=== PATIENT | female | born 1985 | race Caucasian/White ===

== ENCOUNTER → 2023-03-23 14:27 | Outpatient (CLI) | payer OTHER, SELFPAY ==
[2023-03-23 15:28] LABS: Alanine Aminotransferase 21 IU/L (<35); Albumin 3.3 g/dL (3.5-5.0); Albumin Globulin Ratio 1.1 (1.0-2.8); Alkaline Phosphatase 91 U/L (38-126); Aspartate Aminotransferase 20 IU/L (14-36); Bilirubin Total 0.2 mg/dL (0.2-1.3); Bilirubin Unconjugated 0.2 mg/dL (0.0-1.1); Globulin 3.1 g/dL (1.7-4.1); HEMOLYSIS < 15 (0-50); Total Protein 6.4 g/dL (6.3-8.2)
[2023-03-25 10:08] LABS: Bile Acids 7.1 umol/L (0.0-10.0)
== END ==
PROVIDERS: Referring Provider Nurse Practitioner Obstetrics & Gynecology; Visit Provider Nurse Practitioner Obstetrics & Gynecology
DX: Z34.90 Encounter for supervision of normal pregnancy, unspecified, unspecified trimester (principal); L29.9 Pruritus, unspecified
CPT/HCPCS: 36415; 80076; 82239

== ENCOUNTER 2023-04-06 02:08 | Outpatient (CLI) | payer OTHER, SELFPAY ==
--- NOTE | 2023-04-06 02:33 | PM.OBTRLD ---
Visit Information Visit Information Date of evaluation: 04/06/23 Primary OB Provider: Peggy Corona On-call OB Provider: Sherine Devine Reason for Evaluation: Yes non-stress test non-stress test reason: other (s/p fall from standing) Comments/Additional reasons for admission: 37YO @ 35wks 6 days by sure LMP 07/29/2022 and concordant w/ 8wk US, here for evaluation after a fall from standing at around 0100. Was arguing with her partner in her kitchen when she got so stressed out and things went black. Came to a few seconds later on her right side in the floor. Thinks she crumpled more than fell. Denies impact to her head or abdomen. No pain, cramping or vaginal bleeding. Has not felt FM since the fall. Denies DV or concern for physical safety at home. Vital Signs Vital Signs: BP 118/87, HR 81bpm, T 36.3 C Temporal, SpO2 99% on RA PFSH Social History (Updated 04/07/23 @ 10:56 by Sherine Devine CNM) marital status: household members: spouse lives independently: Yes housing: house education level: college occupational status: employed Review of Systems Review of Systems ROS: Yes All systems reviewed with the patient and are negative except as otherwise documented Exam Vital Signs (past 8 hours): see above Presentation: vertex Skin General: no rashes or lesions noted Trauma: no lacerations or abrasions Wounds: no wounds Psych Appearance: grossly normal Mental Status: mental status grossly normal Speech and Movement: speech and movement normal Mood: anxious mood Evaluation Evaluation Baseline heart rate: 135 Variability: Moderate (11-25) monitor accelerations: Present Monitor Decelerations: Absent Category of Tracing: Reactive Comments: CE Deferred Diagnosis, Plan/Disposition Final Diagnosis (1) Syncope: Status: Acute (2) Fall from standing: Status: Acute Plan/Disposition Plan: Reassurance of well being given. Home visit planned later today. Emotional support given and encouraged her to go home and rest. OB Disposition: home
== END 2023-04-06 02:41 | disposition home or self-care (01) ==
LOC: LABOR 02:11 → OB 04-10 15:04
PROVIDERS: Referring Provider Nurse Practitioner Obstetrics & Gynecology; Visit Provider Nurse Practitioner Obstetrics & Gynecology
DX: O26.893 Other specified pregnancy related conditions, third trimester (principal); R55 Syncope and collapse; Z3A.35 35 weeks gestation of pregnancy
CPT/HCPCS: 59025; 87081; G0378; G0379

== ENCOUNTER → 2023-04-06 | Outpatient (ROUT) | payer OTHER, SELFPAY | PROVIDERS: Visit Provider Advanced Practice Midwife ==

== ENCOUNTER → 2023-04-09 10:00 | Outpatient (CLI) | payer OTHER, SELFPAY ==
[2023-04-09 11:47] LABS: Alanine Aminotransferase 24 IU/L (<35); Albumin 3.3 g/dL (3.5-5.0); Alkaline Phosphatase 91 U/L (38-126); Aspartate Aminotransferase 21 IU/L (14-36); Bilirubin Total 0.1 mg/dL (0.2-1.3); Bilirubin Unconjugated 0.1 mg/dL (0.0-1.1); Globulin 3.3 g/dL (1.7-4.1); HEMOLYSIS < 15 (0-50); Total Protein 6.6 g/dL (6.3-8.2)
[2023-04-12 10:08] LABS: Bile Acids 4.1 umol/L (0.0-10.0)
== END ==
PROVIDERS: Referring Provider Advanced Practice Midwife; Visit Provider Advanced Practice Midwife
DX: O26.643 Intrahepatic cholestasis of pregnancy, third trimester (principal); O09.519 Supervision of elderly primigravida, unspecified trimester
CPT/HCPCS: 36415; 80076; 82239

== ENCOUNTER 2023-05-15 11:08 | Inpatient (IN) | payer OTHER, SELFPAY ==
[2023-05-15] VITALS (7 sets, daily range): BP systolic 109–134; BP diastolic 71–87; PULSE 93–105; RESP 12–20; TEMP 36.3–37; O2SAT 94–95
--- NOTE | 2023-05-15 | PATH_ITS ---
[facility] Accession Number: [id number] No. of containers..01 Tissue . 01 Material submitted: . placenta - PLACENTA . 01 Diagnosis: John Placenta, 41+3 Weeks, 562 grams: 1. Acute chorioamnionitis. 2. Villous infarct, subacute, 0.5 cm. 3. Intervillous thrombus, 1.2 cm (as measured on slide). 4. Rare meconium-laden macrophages identified. 5. Three vessel cord without funisitis. 6. Overall villous maturation appropriate for gestational age. [facility] 05/26/2023 1723 Local . 01 Electronically signed: . Geri Sen MD, Pathologist NPI- [id number] . 01 Gross description: . The specimen is received fresh and subsequently placed in formalin per client, labeled with the patient's name, , and placenta, consists of a discoid john placenta with a trimmed weight of 562 grams and measuring 17.2 x 16.6 x 2.3 cm with no accessory lobes identified. . The membranes are detached, diffusely delacruz and roughened, with discoloration occupying approximately 90% of the membrane surface. The membranes insert and are diffusely ruptured at the margin. . The cord measures 42.4 cm in length by 0.9 cm in average diameter with a leftward coil and an index of approximately 1 twist per 5 cm. The cord inserts eccentrically 4.6 cm from the nearest placental disc edge, and sectioning reveals unremarkable trivascular architecture with no knots or lesions identified. . The surface is blue-rangel with the amnion diffusely from the chorion. A slight green tint is identified with no discoloration or lesions. . The maternal surface is apparently complete with some adherent hemorrhagic material occupying approximately diffusely 20% of the maternal surface with no grossly identified associated indentation. No discoloration or lesions are identified. Sectioning reveals a delacruz area of discoloration located eccentrically and occupying less than 10% of the cut surface. No additional lesions are identified. . Banquet Houseperson sections are submitted as follows: A1: Membrane roll and placental end of cord. A2: Membrane roll and end of cord. A3-A4: Full thickness maternal surface adherent hemorrhage. A5-A6: Full thickness cut surface discoloration. A7-A9: Central full thickness unremarkable sections. ([id number]) /MRV 05/18/2023 1229 Local . 01 Microscopic: . PAS stains were performed on blocks A1, A4 and A6, in order to evaluate for fungal organisms, and are all negative. A control stain showed appropriate reactivity. . 01 Pathologist provided ICD-10: O41.1230 . 01 CPT . 716155, [id number] Specimen Comment: A courtesy copy of this report has been sent to [facility]ology Performed at: 01 [facility] [address] [place] [address] [address] [facility], [place], [place] [id number] MD Piotr Ramos MD Phone: [phone]
--- NOTE | 2023-05-15 11:40 | PM.OBHP.1 ---
OB HPI Date/Time Date of admission: 05/15/23 Date Patient Seen: 05/15/23 Time Patient Seen: 11:30 History of Present Condition Chief complaint: induction : 1 Para: 0 Estimated Date of Delivery: 05/05/23 Estimated Gestational Age (weeks): 41.3 Narrative: Michelle Medrano is a 37 year old female @ 41wks 3 days by LMP concordant with 8wk US who presents to the hospital for evaluation of PROM with tachycardia. PROM occurred at 0900 yesterday morning, 05/14/2023, for small amounts of clear fluid. She was evaluated in clinic with a reactive NST at that time and counseled on her options for active vs expectant management of PROM. Patient was planning a home with CONNOR Corona and elected expectant management. Arrived at clinic at 0930 this morning with occasional, mild cramping, continued leaking of clear fluid and afebrile temperatures overnight. FHR was auscultated at 170's in clinic and patient was encouraged to transfer into the hospital for evaluation. Uncomplicated care with Jeremy. Desires low intervention . 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 Partner is present and supportive. Indications Indication for induction OB: other (PROM >24 hours) and post dates History of Present care: good care, initiated at week # (8) and number of visits (14) Dating criteria: LMP confirmed by 1st trimester US Ultrasounds: normal mid trimester US Obstetrical complications: none Medical complications: none Preadmission Labs Blood type: A (+) positive -: Antibody screen: negative, GBS status: negative, HBsAG: negative, HIV: negative and RPR/VDLR: negative -: Chlamydia screen: not detected and Gonorrhea screen: not detected -: Rubella: immune and Varicella: immune HCT: 36.3 HCAB: negative Cell-free DNA: Negative 1 hr GTT: 134 Evaluation Evaluation Baseline heart rate: 175 Variability: Minimal (3-5) monitor accelerations: Absent Monitor Decelerations: Absent Contraction Frequency (minutes): 2 Uterine Contraction Intensity: Mild Status: Category ll Dilation (cm): 1.5 Effacement (%): 75 Dilation: 1-2 cm Effacement: 60-70% station: -2 Position of cervix: posterior Consistency: soft Garcia score: 6 Comments: Gross ROM, clear PFSH Medical History (Updated 05/15/23 @ 12:06 by Sherine Devine CNM) Anxiety Depression affecting Social History (Updated 04/07/23 @ 10:56 by Sherine Devine CNM) marital status: household members: spouse lives independently: Yes housing: house education level: college occupational status: employed Meds Home Medications and Allergies Home Medications Medication Instructions Recorded Confirmed Type fluoxetine 20 mg capsule 20 mg PO DAILY 05/15/23 05/15/23 History omeprazole 20 mg tablet,delayed 20 mg PO DAILY 05/15/23 05/15/23 History release Allergies Allergy/AdvReac Type Severity Reaction Status Date / Time No Known Drug Allergies Allergy Verified 05/15/23 12:04 Review of Systems Review of Systems ROS: Yes All systems reviewed with the patient and are negative except as otherwise documented OB Exam Vital signs Blood Pressure: 134/87 Pulse Rate: 96 Temperature: 98.6 F Resp Effort & Inspection: normal respiratory effort and able to speak in complete sentences Auscultation: clear to auscultation bilaterally Cardio Rate: regular rate Rhythm: regular rhythm Presentation: vertex Estimated Weight (lbs): 9 Objective Labs 05/15/23 11:45 05/15/23 11:45 Assessment and Plan Assessment and Plan Assessment and Plan narrative: A: Late term [place] PROM x 26 hours with NO sx of infection Not in labor, remote from delivery No indication for GBS prophylaxis Cat II FHR for tachycardia P: Admit, routine orders with pre-eclampsia panel. Consulted , [facility] OBGyn who is on her way in to assess and discuss options with the patient. Patient ordered NPO at this time and counseled on high likelihood of for non-reasssuring FHR tracing remote from delivery.
[2023-05-15] MEDS: LACTATED RINGERS 1,000 ML 100 ML IV (11:46)
[2023-05-15 11:56] LABS: Add Manual Diff / Slide Review NO; Basophils Absolute Auto 100 /uL (0-100); Basophils Percent Auto 0.4 % (0-2); Eosinophils Absolute Auto 100 /uL (0-450); Eosinophils Percent Auto 0.5 % (2-4); Hematocrit 38.8 % (36-46); Hemoglobin 12.9 g/dL (12.0-16.0); Lymphocytes Absolute Auto 1600 /uL (1100-4500); Lymphocytes Percent Auto 9.4 % (25-40); Mean Corpuscular HGB Conc 33.3 % (30-36); Mean Corpuscular Hemoglobin 28.2 PG (26-34); Mean Corpuscular Volume 84.7 fL (80-100); Monocytes Absolute Auto 900 /uL (0-900); Monocytes Percent Auto 5.3 % (3-14); Neutrophils Absolute Auto 13900 /uL (1500-7000); Neutrophils Percent Auto 84.4 % (50-75); Platelet Count 252 X10^3/uL (150-400); Red Blood Cell Count 4.58 X10^6/uL (4.0-5.2); White Blood Cell Count 16.5 X10^3/uL (4.5-11.0)
[2023-05-15 12:08] LABS: Aspartate Aminotransferase 21 IU/L (14-36); BUN Creatinine Ratio 25.9 (6-22); Blood Urea Nitrogen 15 mg/dL (7-17); Estimated Glomerular Filt Rate > 60 mL/min (>60); Uric Acid 4.3 mg/dL (2.5-6.2)
[2023-05-15] MEDS: AZITHROMYCIN 500 MG in DEXTROSE 5% IN WATER 250 ML 250 MG IV (12:59)
--- NOTE | 2023-05-15 13:00 | PM.OBPNLAB ---
Date/Time Date Patient Seen: 05/15/23 Time Patient Seen: 13:00 Pelvic Exam Effacement (%): 75 station: -2 Contractions Contraction intensity: Mild Status status: Category ll Heart Rate Baseline: 165 Monitor Accelerations: Absent Monitor Decelerations: Absent Monitor Variability: Minimal Assessment and Plan Plan: Comments: 37yo G1 at 41+3wks admitted after PROM yesterday and non-reassuring heart rate tracing today. Originally planned for a home , seen this morning for an NST after 24hrs ruptured, noted to have minimal variability. I discussed with the patient that given the non-reassuring tracing at this time, remote from delivery, that I would recommend she consider proceeding with delivery. Discussed with her that the risk of induction with continued category II tracing will likely still end in delivery, and potentially cause a more emergent situation. Pt agrees with this, and desires to proceed with primary at this time. consent It was explained to the patient that a section is a surgery to deliver the baby through an incision in the abdominal wall and uterus.? All procedures can be associated with risk and unforeseen complications, which can be immediate or delayed.? Risks and complications of section include, but are not limited to:? infection of the uterus, pelvic organs, or skin; inadvertent injury to internal organs such as the bowel, bladder, or possibly even the baby; blood loss, transfusion, and/or life-threatening hemorrhage requiring hysterectomy; blood clots in the legs, pelvic organs, or lungs; adverse reaction to medications or anesthesia during surgery; development of placenta accreta spectrum in a subsequent ; and increased risk of section in a subsequent . -plan for 2g Ancef and 500mg Azithro for ppx -VTE risk low, PPH risk medium due to prolonged rupture -will proceed to OR for delivery once all teams ready
[2023-05-15] MEDS: CITRIC ACID/SODIUM CITRATE 15 ML SOLUTION 30 ML PO (13:05)
[2023-05-15] MEDS: CEFAZOLIN 2 GM/100 ML PREMIX 100 ML IV (13:32)
[2023-05-15] MEDS: ACETAMINOPHEN IV 1,000 MG/100 ML VIAL 400 MG IV (13:45)
--- NOTE | 2023-05-15 13:47 | SUR.OPER ---
Supine on Padded OR bed, head on pillow, safety belt at thigh, arms secured on padded arm boards at <90 degrees abduction. Bump under right buttock. Legs uncrossed with pillow under knees, gel pad to heels, tape over blanket to lower legs.
--- NOTE | 2023-05-15 13:58 | SUR.OPER ---
Viable baby girl born at 1351. Placenta delivered at 1353. Cord blood given to OB RN. Placenta sent to pathology according to MD order. APGARS: 8/9.
--- NOTE | 2023-05-15 14:11 | PM.AN.REGBLK ---
Regional Block Pre-procedure Procedure: Continuous Lumbar Epidural for L&D PMH/ROS narrative: 37yo female full-term with intolerance of labor for primary c/s. Anxiety/depression/PTSD. Otherwise healthy. See pre-anesthesia evaluation for further details. ASA Class: II (E) Labs: Hct 38.8 % (36-46) 05/15/23 11:45 Plt Count 252 X10^3/uL (150-400) 05/15/23 11:45 Medications: Current Medications Generic Name Dose Route Start Last Admin Trade Name Freq PRN Reason Stop Dose Admin Butorphanol Tartrate 0.5 mg 05/15/23 14:07 Butorphanol 1 Mg/Ml Vial IV 05/16/23 14:07 Q3H PRN Pain, Moderate (4-6) Butorphanol Tartrate 0.5 mg 05/15/23 14:07 Butorphanol 1 Mg/Ml Vial IV 05/16/23 14:08 Q3HR PRN PRURITUS Calcium Carbonate 1,000 mg 05/15/23 11:34 Calcium Carbonate 500 Mg Tab PO Q4HR PRN Dyspepsia Carboprost Tromethamine 250 mcg 05/15/23 11:34 Carboprost 250 Mcg/Ml Ampul IM Q90M PRN Bleeding Diphenhydramine HCl 25 mg 05/15/23 14:07 Diphenhydramine 50 Mg/Ml Vial IV 05/16/23 14:08 Q3HR PRN PRURITUS Fentanyl 100 mcg 05/15/23 11:34 Fentanyl 100 Mcg/2 Ml Inj IV Q1H PRN Pain, Severe (7-10) Hydromorphone HCl 0 mg 05/15/23 14:05 Hydromorphone 1 Mg Inj IV Q5MIN PRN Mod pain Oxytocin/Lactated Ringer's 30 unit in 500 mls @ 200 mls/hr 05/15/23 11:34 Oxytocin Premix IV CONT PRN Bleeding Protocol Tranexamic Acid 1,000 mg/ 100 mls @ 200 mls/hr 05/15/23 11:34 Sodium Chloride IV NOW PRN Bleeding Oxytocin/Lactated Ringer's 30 unit in 500 mls @ 2 mls/hr 05/15/23 11:45 Oxytocin Premix IV TITRATE PAT Protocol 2 MILLIUNIT/MIN Lactated Ringer's 1,000 mls @ 100 mls/hr 05/15/23 11:45 05/15/23 11:46 Lactated Ringers IV 100 mls/hr CONT PAT Administration Lactated Ringer's 1,000 mls @ 42 mls/hr 05/15/23 13:15 Lactated Ringers IV CONT PAT Acetaminophen 1,000 mg in 100 mls @ 400 mls/hr 05/15/23 14:03 05/15/23 14:08 Ofirmev IV 05/15/23 14:17 Infused NOW ONE Infusion Sodium Chloride 1,000 mls @ 100 mls/hr 05/15/23 14:15 Normal Saline 0.9% IV 05/16/23 14:07 CONT PAT Lidocaine HCl 20 ml 05/15/23 11:34 Lidocaine 1% 20 Ml INJ INTRA-OP PRN Post Delivery Meperidine HCl 25 mg 05/15/23 14:05 Meperidine 50 Mg/Ml Inj IV PACUNOW PRN Moderate pain or shivering Methylergonovine Maleate 0.2 mg 05/15/23 11:34 Methylergonovine 0.2 Mg Tablet PO Q6HR PRN Heavy Bleeding Methylergonovine Maleate 0.2 mg 05/15/23 11:34 Methylergonovine 0.2 Mg/Ml Vial IM NOW PRN Bleeding Metoclopramide HCl 10 mg 05/15/23 14:05 Metoclopramide 10 Mg/2 Ml Inj IV NOW PRN Nausea And Vomiting Metoclopramide HCl 10 mg 05/15/23 14:07 Metoclopramide 10 Mg/2 Ml Inj IV 05/16/23 14:07 Q4H PRN Nausea Misoprostol 800 mcg 05/15/23 11:34 Misoprostol 200 Mcg Tablet ID NOW PRN Bleeding Misoprostol 400 mcg 05/15/23 11:34 Misoprostol 200 Mcg Tablet SL NOW PRN Bleeding Nalbuphine HCl 5 mg 05/15/23 14:07 Nalbuphine 20 Mg/Ml Ampul IV Q6H PRN Pruritus Naloxone HCl 0.2 mg 05/15/23 11:34 Naloxone 0.4 Mg/Ml Vial IV Q2MIN PRN Opiate Reversal Naloxone HCl 0.4 mg 05/15/23 14:07 Naloxone 0.4 Mg/Ml Vial IV Q2MIN PRN Opiate Reversal Ondansetron HCl 4 mg 05/15/23 11:34 Ondansetron 4 Mg/2 Ml Inj IV Q4HR PRN Nausea And Vomiting Ondansetron HCl 4 mg 05/15/23 14:05 Ondansetron 4 Mg/2 Ml Inj IV NOW PRN Nausea And Vomiting Ondansetron HCl 4 mg 05/15/23 17:00 Ondansetron 4 Mg/2 Ml Inj IV 05/15/23 21:01 Q4HR PAT Oxycodone HCl 5 mg 05/15/23 14:05 Oxycodone Ir 5 Mg Tablet PO PACUNOW PRN Mild or moderate pain Oxycodone HCl 5 mg 05/15/23 14:07 Oxycodone Ir 5 Mg Tablet PO 05/16/23 14:07 Q4HR PRN Pain, Moderate (4-6) Oxytocin 10 unit 05/15/23 11:34 Oxytocin 10 Unit/Ml Vial IM NOW PRN Bleeding Allergies: Allergies Allergy/AdvReac Type Severity Reaction Status Date / Time No Known Drug Allergies Allergy Verified 05/15/23 12:04 Procedure Insertion date: 05/15/23 Insertion time: 13:28 Prep/Local: 1% lidocaine (Chlorhexidine) Interspace: L3-4 Patient position: sitting Sensory level: T6 bilaterally Initial Medications BOLUS DOSE time: 13:28 BOLUS DOSE (mL): 13 BOLUS DOSE med: other (0.75% bupivacaine in dextrose) Post-procedure Anesthesia time START: 13:14 Anesthesia time END: 14:40 Post-procedure Anesthesia Assessment: Yes CV function: HR/BP stable, Yes Resp function: RR/sat/airway adequate, Yes Post-op hydration adequate, Yes Pain control adequate, Yes Nausea & vomiting absent, Yes Temperature > 36 C and Yes Mental status appropriate
--- NOTE | 2023-05-15 14:32 | PM.PROC.1 ---
Procedures Date/Time Date of procedure: 05/15/23 Time of procedure: 13:51 General Procedure description: [place] Machine Operator Documentation I assisted the OB transportation equipment painter in the section for this patient. My responsibilities included retracting and suctioning, providing fundal pressure during delivery and following with suture during closure. Please see the OB's note for details of the surgery.
--- NOTE | 2023-05-15 14:47 | PM.OBCS.1 ---
Operative Date/Time/Diagnoses Date of procedure: 05/15/23 Time of procedure: 14:47 Pre-op diagnosis: 1. Term intrauterine john gestation at 41+3wks 2. Non-reassuring heart rate tracing 3. Prolonged rupture of membranes (>24hrs) 4. Advanced maternal age Post-op diagnosis: same (delivered via primary low transverse section) Procedure & Clinicians Procedure: Primary low transverse section Same procedure as scheduled: Yes Indications: 37yo at 41+3 weeks EGA w/ PNC c/b AMA, who was admitted on 05/15/23 for prolonged rupture of membranes. Her tracing was noted to have minimal variability with no accels or decels, and her cervical exam was 1cm. Given that she is remote from delivery, in addition to a non-reassuring heart rate tracing in the setting of prolonged rupture of membranes, she was counseled and consented for PLTCS. Surgeon: Kely Eason Click Yes if Unassisted: No Senior Accounts Payable Clerk: Sherine Devine Anesthesia Type: Spinal Operative Notes Findings: Normal-appearing uterus and bilateral fallopian tubes and ovaries. Meconium-stained fluid with foul odor noted with delivery. Delivery productive of a viable female in cephalic presentation with APGARs 8/9 and weighing 3478g. Specimen(s): cord blood and placenta Intraoperative meds administered: Duramorph and Ketorolac Applied: Catheter Estimated Blood Loss (mL): 900 Blood products transfused: none Procedure in detail: The risks, benefits, indications and alternatives of the procedure were reviewed with the patient and informed consent was obtained. The patient was taken to the operating room where spinal anesthesia was obtained without difficulty and was found to be adequate. She was then prepped and draped in the normal, sterile fashion in the dorsal supine position with a leftward tilt. She was given 2g Ancef and 500mg Azithro for prophylaxis. A Pfannenstiel skin incision was then made with the scalpel and carried through to the underlying layer of fascia. The fascia was incised in the midline and the incision extended laterally with the Mayorga scissors. The superior aspect of the incision, which was grasped, tented up with Tod clamps and the rectus muscles were dissected off bluntly, aided with Mayorga scissors. The rectus muscles were then at the midline. The peritoneum was identified, and entered digitally. The peritoneal incision was then extended horizontally, superiorly and inferiorly, with good visualization of the bladder. The bladder blade was then inserted. The lower uterine segment was incised in a transverse fashion with the scalpel. The uterine incision was then extended manually in a cephalad/caudad direction. The amniotic sac was entered, and the bladder blade was then removed. The ?s head delivered atraumatically through the hysterotomy without difficulty, followed by the body.? The infant was vigorous at delivery, thus the cord was doubly clamped and cut after a 60sec delay, with the handed off to the waiting pediatrics team. The placenta was then removed spontaneously with gentle traction on the umbilical cord. The uterus was then left in-situ and cleared of all clots and debris. The uterine incision was repaired with 0-vicryl in a running, locked fashion. A second layer using 0-monocryl was then used to imbricate the hysterotomy with excellent hemostasis achieved. The paracolic gutters were cleared of all clot and debris. The fascia was reapproximated with 0-vicryl in a running fashion. The subcutaneous layer was closed with 3-0 vicryl in simple, interrupted sutures. The skin was closed with 4-0 monocryl in a subcuticular fashion. The incision was then dressed with steri-strips and an aquacel dressing was applied. At the completion of the case, a Crede maneuver was performed with good uterine tone and minimal vaginal bleeding noted.? The patient tolerated the procedure well. Sponge, lap and needle counts were correct x3. The patient was taken to the recovery room in stable condition. The patient is a candidate for a trial of labor after . Complications: none Post-operative Condition: stable Disposition: PACU Aftercare: routine postop
--- NOTE | 2023-05-15 15:03 | SUR.PHASEI ---
SBAR report called to Marissa Edgar and then patient transferred in bed to room 2. Updated SBAR and fundal check at bedside with Carlotta EDGAR. No bleeding. Pt awake and alert. Carolyn and RN at bedside.
[2023-05-15] MEDS: ACETAMINOPHEN 325 MG TABLET 650 MG PO (16:45)
[2023-05-15] MEDS: KETOROLAC 30 MG/ML VIAL IV (20:19)
[2023-05-15] MEDS: LANOLIN OINT 7 GM 1 APPLIC TOP (20:23)
[2023-05-15] MEDS: OXYCODONE IR 5 MG TABLET PO (22:37)
[2023-05-16] MEDS: KETOROLAC 30 MG/ML VIAL IV (02:25)
[2023-05-16] MEDS: ACETAMINOPHEN 325 MG TABLET 650 MG PO ×3 (02:26→15:45)
[2023-05-16 07:06] LABS: Add Manual Diff / Slide Review NO; Basophils Absolute Auto 0 /uL (0-100); Basophils Percent Auto 0.3 % (0-2); Eosinophils Absolute Auto 0 /uL (0-450); Eosinophils Percent Auto 0.3 % (2-4); Hematocrit 24.9 % (36-46); Hemoglobin 8.4 g/dL (12.0-16.0); Lymphocytes Absolute Auto 2000 /uL (1100-4500); Lymphocytes Percent Auto 11.4 % (25-40); Mean Corpuscular HGB Conc 33.7 % (30-36); Mean Corpuscular Hemoglobin 28.4 PG (26-34); Mean Corpuscular Volume 84.3 fL (80-100); Monocytes Absolute Auto 1100 /uL (0-900); Monocytes Percent Auto 6.3 % (3-14); Neutrophils Absolute Auto 14100 /uL (1500-7000); Neutrophils Percent Auto 81.7 % (50-75); Platelet Count 193 X10^3/uL (150-400); Red Blood Cell Count 2.95 X10^6/uL (4.0-5.2); Red Cell Distribution Width 16.3 % (11.6-14.8); White Blood Cell Count 17.3 X10^3/uL (4.5-11.0)
[2023-05-16] MEDS: DOCUSATE 100 MG CAPSULE PO (08:54)
[2023-05-16] MEDS: PANTOPRAZOLE DR 20 MG TABLET PO (08:55)
[2023-05-16] MEDS: PRENATAL VIT,CALC/IRON/FOLIC 1 TABLET 1 TAB PO (08:55)
[2023-05-16] MEDS: IBUPROFEN 600 MG TABLET PO ×2 (08:55→15:44)
--- NOTE | 2023-05-16 11:27 | P.PNOB_ITS ---
Subjective - OB Subjective Patient comments: pain well controlled [place] baby status: doing well feeding status: exclusively breast feeding Narrative: 37yo [id number] POD#1 s/p PLTCS for NRFHT, doing well . Is having a positional headache however, worse with sitting up or standing. Otherwise pain is well controlled. She has not ambulated much, and seaman is still in place due to headache. Reports vaginal bleeding is light. Pt has questions about whether she had an infection or not, and whether she should get the blood patch procedure. Date Patient Seen: 05/16/23 Time Patient Seen: 11:27 Exam Vital Signs (past 8 hours): Oxygen Delivery Method Room Air Narrative Exam Narrative: vitals reviewed in OBIX, within normal parameters; UOP >100cc/hr Const General: comfortable and No acute distress Resp Effort & Inspection: normal respiratory effort and able to speak in complete sentences Other: fundus firm and nontender at U-2 Skin Other: incision covered with Aquacel dressing with minimal strikethrough noted Neuro General: patient alert and patient awake Extrem General: normal to inspection and edema (+1) Psych Mood: congruent mood Affect: normal affect Objective Labs 05/16/23 07:00 05/15/23 11:45 Labs: Laboratory Results - last 24 hr 05/15/23 05/16/23 11:45 07:00 WBC 16.5 H 17.3 H RBC 4.58 2.95 L Hgb 12.9 8.4 L Hct 38.8 24.9 L MCV 84.7 84.3 MCH 28.2 28.4 MCHC 33.3 33.7 RDW 16.0 H 16.3 H Plt Count 252 193 Neut % (Auto) 84.4 H 81.7 H Lymph % (Auto) 9.4 L 11.4 L Dickenson % (Auto) 5.3 6.3 Eos % (Auto) 0.5 L 0.3 L Baso % (Auto) 0.4 0.3 Neut # (Auto) 81749 H 42558 H Lymph # (Auto) 1600 2000 Dickenson # (Auto) 900 1100 H Eos # (Auto) 100 0 Baso # (Auto) 100 0 BUN 15 Creatinine 0.58 Estimated GFR > 60 BUN/Creatinine Ratio 25.9 H Uric Acid 4.3 AST 21 Blood Type A Positive Antibody Screen Negative Assessment & Plan Assessment and Plan (1) delivery delivered: Status: Acute (2) Spinal headache complicating labor and delivery, delivered, : Status: Acute (3) Acute postoperative anemia due to greater than expected blood loss: Status: Acute Plan day: 1 plan OB: routine postop care Comments: 37yo [id number] POD#1 s/p PLTCS, now with suspected spinal headache. -encouraged pt to ambulate and have her seaman removed, so she can evaluate if she desires a blood patch procedure or not -drop in H/H was greater than expected given EBL, however given adequate urine output and minimal abdominal pain, low suspicion for ongoing bleeding; continue to monitor for symptoms of post-op anemia; start PO iron -discussed that she very likely had an amniotic fluid infection, however given that antepartum she did not meet criteria for intraamniotic infection, she does not need antibiotics at this time; reviewed signs/symptoms of infection however, given that she is higher risk for endometritis given with signs of fluid infection at delivery; would have a low threshold to treat for endometritis -if pt continues to do well today, anticipate d/c home tomorrow Time Spent With Patient Time: Total time spent is greater than 50% in coordination of care (as documented) at patient's floor/unit and/or counseling patient: Time with patient: 15-24 minutes
[2023-05-16] MEDS: BUTALB/APAP/CAFFEINE 50/325/40 TABLET 1 EACH PO ×2 (11:55→15:46)
[2023-05-16] MEDS: FERROUS SULFATE 325 MG TABLET PO (11:56)
[2023-05-16] MEDS: OXYCODONE IR 5 MG TABLET PO (15:48)
--- NOTE | 2023-05-16 18:25 | P.CONS_ITS ---
History of Present Illness Consult details Date Patient Seen: 05/16/23 Time Patient Seen: 14:00 Chief complaint: Headache Requesting provider: Kely Eason Narrative: 37 year old @ 41wks 3 days, who underwent urgent CS under spinal anesthesia yesterday for intolerance of labor. uncomplicated, surgery and anesthetic uncomplicated. Pt now c/o postural headache, rated 1/10 while supine, to rapidly 6/10 when seated or standing. NEWSOME again quickly resolves when supine. Denies h/o migraines or other recurring headaches, and reports this is like no previous headache. Described as pressure, occipital and frontal. Denies visual or auditory changes, though does express sensitivity to light. Denies F/C/N/V, otherwise feeling well. Meds Home Medications and Allergies Home Medications Medication Instructions Recorded Confirmed Type fluoxetine 20 mg capsule 20 mg PO DAILY 05/15/23 05/15/23 History omeprazole 20 mg tablet,delayed 20 mg PO DAILY 05/15/23 05/15/23 History release Allergies Allergy/AdvReac Type Severity Reaction Status Date / Time No Known Drug Allergies Allergy Verified 05/15/23 12:04 Review of Systems Review of Systems Narrative: ROS as above. Exam Vital Signs (past 8 hours): Oxygen Delivery Method Room Air Narrative Exam Narrative: WNWD, NAD, supine/reclined in bed. Alert, conversant. No gross neurological deficit. Back/Spine/Pelvis Back: normal to inspection, No back tenderness, No erythema and No warmth Other: small puncture site from spinal anesthesia normal in appearance, no erythema or TTP. Skin Rashes: no rashes Objective Labs 05/16/23 07:00 05/15/23 11:45 Labs: Laboratory Results - last 24 hr 05/16/23 07:00 WBC 17.3 H RBC 2.95 L Hgb 8.4 L Hct 24.9 L MCV 84.3 MCH 28.4 MCHC 33.7 RDW 16.3 H Plt Count 193 Neut % (Auto) 81.7 H Lymph % (Auto) 11.4 L [place] % (Auto) 6.3 Eos % (Auto) 0.3 L Baso % (Auto) 0.3 Neut # (Auto) 23413 H Lymph # (Auto) 2000 [place] # (Auto) 1100 H Eos # (Auto) 0 Baso # (Auto) 0 PFSH Medical History Anxiety Depression affecting Social History marital status: household members: spouse lives independently: Yes housing: house education level: college occupational status: employed Tobacco & Substance Use Smoking Status: Never smoker Assessment & Plan Assessment & Plan narrative: Onset, presentation, mechanism all consistent with PDPH. Organic NEWSOME, infectious cause unlikely, given postural nature, normal VS, no rash, no fever, otherwise feeling well. WBC elevated but POD#1 from CS. PLAN:epidural blood patch. see procedure note.
--- NOTE | 2023-05-16 18:40 | PM.PROC.1 ---
Procedures Date/Time Date of procedure: 05/16/23 Time of procedure: 18:00 General Procedure description: EPIDURAL BLOOD PATCH Discussed risks, benefits, alternatives, and indications of procedure, as well as expected outcomes with patient and spouse. Consent signed. Pt positioned seated with head resting on pillow on table. Sterile prep(chloraprep)/drape in the usual fashion. Lido 1% local L3-4. Hustead needle advanced until clean MARY at 5cm with saline. No paresthesias, no heme. RN at bedside chlorprep R AC for blood draw with sterile gloves. 20mL blood withdrawn and 17mL injected into the epidural space in 2mL increments, until pt reported feeling some pressure in the lower back. Stylette was replace and Hustead removed. Pt denied pain or paresthesias with injection, and reported significant improvement in her NEWSOME before lying supine. Pt advised to remain supine/reclined for 1 hour, and to avoid lifting for 24h.
--- NOTE | 2023-05-16 23:16 | PM.OBDS.1 ---
Discharge Providers Provider Date of admission: 05/15/23 11:08 Discharge Date: 05/16/23 Consults: 05/15/23 11:34 Consult to Anesthesiology Urgent Comment: Consulting Provider: Anesthesiologist Reason for consultation: Epidural Has provider been notified: No 05/15/23 15:42 Consult to Brush [employer] Machine Routine Comment: Discharge provider: Sherine Devine CNM Summary Hospital Course Date Patient Seen: 05/16/23 Time Patient Seen: 23:19 Diagnoses: Post-op day 1 s/p primary for non-reassuring FHTs remote from delivery with likely intramniotic infection (never fever). Voiding, ambulating and independently. Tolerating a general diet. Vaginal bleeding is minimal, no clots. LTAI incision dressing is in place with no drainage noted. Pain is well controlled with ibuprofen and Tylenol and rare oxycodone. No dizziness with ambulation. Spinal headache resolved immediately after she received a blood patch, no further concerns. is transferring to NICU at [facility] and she is eager for discharge to be with her baby. Partner is present and supportive and they have lots of help available at home. Hospital Course: PPD1: Stable s/p primary Peripartum Data Delivery Method: Section Laceration Description: None [place] 1: Gender: Female Disposition of : NICU Discharge Diagnosis (1) delivery delivered: Status: Acute Problem Details: Discussed that she very likely had an amniotic fluid infection, however given that antepartum she did not meet criteria for intraamniotic infection, she does not need antibiotics at this time; reviewed signs/symptoms of infection however, given that she is higher risk for endometritis given with signs of fluid infection at delivery; would have a low threshold to treat for endometritis (2) Spinal headache complicating labor and delivery, delivered, : Status: Acute Problem Details: Headache resolved immediately s/p blood patch (3) Acute postoperative anemia due to greater than expected blood loss: Status: Acute Problem Details: No symptoms of post-op anemia; PO iron Status at Discharge Cognitive/behavioral status at discharge: oriented and calm Functional status at discharge: independent ambulation Overall status at discharge: patient is progressing back to baseline Time Spent with Patient Time attestation: Total time spent providing and/or coordinating discharge services: Objective Labs 05/16/23 07:00 05/15/23 11:45 Labs: Laboratory Results - last 24 hr 05/16/23 07:00 WBC 17.3 H RBC 2.95 L Hgb 8.4 L Hct 24.9 L MCV 84.3 MCH 28.4 MCHC 33.7 RDW 16.3 H Plt Count 193 Neut % (Auto) 81.7 H Lymph % (Auto) 11.4 L [place] % (Auto) 6.3 Eos % (Auto) 0.3 L Baso % (Auto) 0.3 Neut # (Auto) 51793 H Lymph # (Auto) 2000 [place] # (Auto) 1100 H Eos # (Auto) 0 Baso # (Auto) 0 Exam Vital Signs (past 8 hours): Oxygen Delivery Method Room Air BP 111/73, HR 99bpm, RR 16/min, T 97.7F Temporal Other: Fundus firm at U-2, lochia scant. LTAI Aquacel dressing well adhered with no new drainage noted. Discharge Plan Discharge Plan Patient Disposition: Home Discharge orders & Medications Prescriptions: New oxycodone 5 mg Tablet 5 mg PO Q4H PRN (Reason: Pain, Moderate (4-6)) 7 Days Qty: 20 0RF docusate sodium 100 mg Capsule 100 mg PO DAILY 14 Days Qty: 20 0RF ibuprofen 600 mg Tablet 600 mg PO Q6H 14 Days Qty: 60 0RF ferrous sulfate 325 mg (65 mg iron) Tablet 325 mg PO DAILY 45 Days Qty: 60 0RF Continued fluoxetine 20 mg capsule 20 mg PO DAILY Discontinued omeprazole 20 mg Tablet,Delayed Release (Dr/Ec) 20 mg PO DAILY Follow up/Referrals: Sherine Devine CNM [Advanced Teacher Asst] - (1 week, 2 week and 6 week follow-up appointment sin your email) Diet/Activity/Treatments Diet: Diet as Tolerated and Regular Activity: No lifting >10lbs; bed rest; no exercise; pelvic rest x 6 weeks Skin/Wound/Dressing Care Report to your healthcare provider any signs of infection, such as:: chills, fever, increased pain, unusual drainage and unusual redness Other wound treatment: low threshold for concern for infection, reviewed concerning symptoms in depth Visit Report/Discharge Packet Instructions: Endometritis, Depression Stand Alone Forms: Patient Portal/API, Surgery Discharge
[2023-05-17 00:05] VITALS: BP 110/75; PULSE 96; RESP 14; TEMP 36.3
[2023-05-17] MEDS: IBUPROFEN 600 MG TABLET PO (00:10)
[2023-05-17] MEDS: ACETAMINOPHEN 325 MG TABLET 650 MG PO (00:11)
[2023-05-17 00:46] LABS: Add Manual Diff / Slide Review NO; Basophils Absolute Auto 100 /uL (0-100); Basophils Percent Auto 0.4 % (0-2); Eosinophils Absolute Auto 100 /uL (0-450); Eosinophils Percent Auto 0.6 % (2-4); Hematocrit 27.6 % (36-46); Hemoglobin 9.4 g/dL (12.0-16.0); Lymphocytes Absolute Auto 2700 /uL (1100-4500); Lymphocytes Percent Auto 14.3 % (25-40); Mean Corpuscular HGB Conc 33.9 % (30-36); Mean Corpuscular Volume 85.7 fL (80-100); Monocytes Absolute Auto 900 /uL (0-900); Neutrophils Absolute Auto 14800 /uL (1500-7000); Neutrophils Percent Auto 79.7 % (50-75); Platelet Count 244 X10^3/uL (150-400); Red Blood Cell Count 3.22 X10^6/uL (4.0-5.2); Red Cell Distribution Width 17.1 % (11.6-14.8); White Blood Cell Count 18.6 X10^3/uL (4.5-11.0)
[2023-05-17 02:12] VITALS: BP 110/75; PULSE 96; RESP 14; TEMP 36.3
== END 2023-05-17 01:55 | disposition home or self-care (01) | DRG 787 ==
PROVIDERS: Nurse Practitioner Obstetrics & Gynecology; Student in an Organized Health Care Education/Training Program; Admitting Provider Advanced Practice Midwife; Visit Provider Advanced Practice Midwife
PROC: 10D00Z1 Extraction of Products of Conception, Low, Open Approach (ICD-10-PCS; CPT 59514; principal; 2023-05-15 13:15)
DX: O76 Abnormality in fetal heart rate and rhythm complicating labor and delivery (principal); D62 Acute posthemorrhagic anemia; O90.81 Anemia of the puerperium; O41.1090 Infection of amniotic sac and membranes, unspecified, unspecified trimester, not applicable or unspecified; O42.12 Full-term premature rupture of membranes, onset of labor more than 24 hours following rupture; Z3A.41 41 weeks gestation of pregnancy; Z37.0 Single live birth; O48.0 Post-term pregnancy; G97.1 Other reaction to spinal and lumbar puncture
CPT/HCPCS: 36415; 59050; 59514; 84450; 84550; 85025; 86850; 86900; 86901; G0379; J0131; J0690; J1100; J1885; J2274; J2405; J3010

== ENCOUNTER → 2023-07-10 13:20 | Outpatient (CLI) | payer OTHER, SELFPAY | PROVIDERS: Visit Provider Physician Assistant | DX: R31.9 Hematuria, unspecified (principal) | CPT/HCPCS: 87086 ==

== ENCOUNTER 2023-07-10 13:54 | Emergency (ER) | payer OTHER, SELFPAY ==
[2023-07-10] VITALS (7 sets, daily range): BP systolic 115–125; BP diastolic 75–89; PULSE 60–81; RESP 18–24; TEMP 36.6; O2SAT 95–99; BMI 28.3
[2023-07-10 15:03] LABS: Add Manual Diff / Slide Review NO; Basophils Absolute Auto 0 /uL (0-100); Basophils Percent Auto 0.3 % (0-2); Eosinophils Absolute Auto 100 /uL (0-450); Eosinophils Percent Auto 1.5 % (2-4); Hematocrit 42.7 % (36-46); Lymphocytes Absolute Auto 2400 /uL (1100-4500); Lymphocytes Percent Auto 36.3 % (25-40); Mean Corpuscular HGB Conc 32.8 % (30-36); Mean Corpuscular Hemoglobin 27.8 PG (26-34); Mean Corpuscular Volume 84.7 fL (80-100); Monocytes Absolute Auto 300 /uL (0-900); Monocytes Percent Auto 5.1 % (3-14); Neutrophils Absolute Auto 3700 /uL (1500-7000); Neutrophils Percent Auto 56.8 % (50-75); Platelet Count 301 X10^3/uL (150-400); Red Blood Cell Count 5.04 X10^6/uL (4.0-5.2); Red Cell Distribution Width 15.1 % (11.6-14.8); White Blood Cell Count 6.6 X10^3/uL (4.5-11.0)
[2023-07-10 15:08] LABS: Urine Volume 10mL (spun)
[2023-07-10 15:09] LABS: RBC Urine 1-5/HPF (0-5/HPF)
[2023-07-10 15:10] LABS: Squamous Epithelial Cell Urine 1-5 /HPF (0-5/HPF); Transitional Epi Cells Urine 5-10/HPF (0-5/HPF); WBC Urine 1-5/HPF (0-5/HPF)
[2023-07-10 15:11] LABS: Bacteria Urine Moderate (10-30)
[2023-07-10 15:13] LABS: Alanine Aminotransferase 33 IU/L (<35); Albumin 4.5 g/dL (3.5-5.0); Albumin Globulin Ratio 1.3 (1.0-2.8); Alkaline Phosphatase 70 U/L (38-126); Aspartate Aminotransferase 22 IU/L (14-36); BUN Creatinine Ratio 22.9 (6-22); Bilirubin Total 0.5 mg/dL (0.2-1.3); Blood Urea Nitrogen 24 mg/dL (7-17); Calcium 9.9 mg/dL (8.4-10.2); Carbon Dioxide 26 mmol/L (22-32); Chloride 103 mmol/L (98-107); Estimated Glomerular Filt Rate > 60 mL/min (>60); Globulin 3.4 g/dL (1.7-4.1); Glucose 94 mg/dL (70-100); HEMOLYSIS < 15 (0-50); Lipase 178 U/L (23-300); Sodium 138 mmol/L (137-145); Total Protein 7.9 g/dL (6.3-8.2)
--- NOTE | 2023-07-10 16:02 | PC.NURSE ---
Pt reports history of pylonephritis which feels just like that currently. The past 4 days patient developed lower back pain which radiates to her bilateral flank and around to lower abdomen. She has been nauseous at home and reports dizziness when walking around. She describes 2 episodes of dizziness today. When asked further, patient did report falling and passing out, waking up on the floor. Pt's 8 week old daughter was sleeping and the pt's was at home when she fell. Pt recalls waking up on the floor but denies hitting her head, reporting falling on her right knee and left forearm/wrist. She denies knee and arm pain and has full range of motion. She had her drive her to the walk in, and then ambulated to the ER from the walk in. Pt has not been having sex after delivery of her baby and is not currently taking any contraceptives.
[2023-07-10] MEDS: SODIUM CHLORIDE 0.9% 1,000 ML 1000 ML IV (16:15)
--- NOTE | 2023-07-10 16:49 | ED_ITS ---
HPI - General Adult General Chief complaint: Urogenital-Female Stated complaint: blood in urine, back pain t-4, sent by [facility] Time Seen by Provider: 07/10/23 15:30 Source: patient Mode of arrival: Ambulatory History of Present Illness HPI narrative: Patient is a 37-year-old female. For the past 4 days she has had lower back discomfort. Since that time she was also developed some nausea but no vomiting. No fevers. Is having blood in her urine, urinary urgency and frequency. She also reports that earlier today she had a syncopal episode when she was going from sitting to standing. Prior to the event she did not have any chest pain or palpitations or shortness of breath. She has had pyelonephritis in the past. She states this feels similar to how that started. She is 8 weeks . Is . Has no breast tenderness. No vaginal bleeding. Related Data Previous Rx's Medication Instructions Recorded cephalexin 500 mg capsule 500 mg PO BID 7 days #14 caps 07/10/23 Allergies Allergy/AdvReac Type Severity Reaction Status Date / Time No Known Drug Allergies Allergy Verified 07/10/23 14:19 Review of Systems Constitutional Constitutional: Reports system reviewed and no additional complaints, except as documented Gastrointestinal Gastrointestinal: Reports system reviewed and no additional complaints, except as documented Genitourinary Genitourinary: Reports system reviewed and no additional complaints, except as documented Musculoskeletal Musculoskeletal: Reports system reviewed and no additional complaints, except as documented Integumentary/Breasts Skin/Breast: Reports system reviewed and no additional complaints, except as documented Hematologic/Lymphatic On Anticoagulants: No Patient History Medical History Anxiety Depression affecting Social History marital status: household members: spouse lives independently: Yes housing: house education level: college occupational status: employed Smoking Status: Never smoker Smoking Status: Never smoker Substance Use Type: does not use Exam Initial Vital Signs Initial Vital Signs: Vital Signs Temperature 97.9 F 07/10/23 14:14 Pulse Rate 81 07/10/23 14:14 Respiratory Rate 18 07/10/23 14:14 Blood Pressure 125/89 07/10/23 14:14 Pulse Oximetry 98 07/10/23 14:14 Oxygen Delivery Method Room Air 07/10/23 14:14 [facility] Head: normal to inspection and normocephalic Resp Effort & Inspection: normal respiratory effort Auscultation: clear to auscultation bilaterally Cardio Rate: regular rate Rhythm: regular rhythm GI Inspection: normal to inspection Back/Spine/Pelvis Back: No CVA tenderness Neuro General: patient alert, patient awake and patient oriented x3 Extrem General: normal to inspection Course Orders Ordered: ED Orders 07/10/23 14:46 Complete Blood Count AUTO DIFF Stat Comprehensive Metabolic Panel Stat Lipase Stat 07/10/23 14:47 Urine Culture Stat Urine Microscopic Stat 07/10/23 15:57 EKG-12 Lead Stat Discontinued Medications Cephalexin HCl (Cephalexin 250 Mg Capsule) 500 mg PO NOW ONE Stop: 07/10/23 16:51 Last Admin: 07/10/23 17:02 Dose: 500 mg Documented By: JAIR Sodium Chloride (Normal Saline 0.9%) 1,000 mls @ 1,000 mls/hr IV BOLUS ONE Stop: 07/10/23 16:56 Last Infusion: 07/10/23 17:03 Dose: 0 mls/hr Documented By: Admin: 07/10/23 16:15 Dose: 1,000 mls/hr Documented By: WICHO Ondansetron HCl (Ondansetron 4 Mg/2 Ml Inj) 4 mg IV NOW PRN PRN Reason: Nausea And Vomiting Ondansetron HCl (Ondansetron 4 Mg Odt) 4 mg PO NOW PRN PRN Reason: Nausea And Vomiting Vital Signs Vital signs: Vital Signs - 8 hr 07/10/23 14:14 07/10/23 15:11 07/10/23 15:12 Temperature 97.9 F Pulse Rate 81 Respiratory Rate 18 Blood Pressure 125/89 124/78 Pulse Oximetry 98 99 Oxygen Delivery Method Room Air 07/10/23 15:12 07/10/23 15:30 07/10/23 16:00 Temperature Pulse Rate 67 69 Respiratory Rate Blood Pressure 116/76 Pulse Oximetry 97 97 Oxygen Delivery Method Room Air Room Air 07/10/23 16:00 07/10/23 16:30 07/10/23 16:31 Temperature Pulse Rate 60 61 Respiratory Rate 18 24 Blood Pressure 115/75 Pulse Oximetry 98 98 Oxygen Delivery Method Room Air 07/10/23 16:31 Temperature Pulse Rate 74 Respiratory Rate 22 Blood Pressure Pulse Oximetry 95 Oxygen Delivery Method Medical Decision Making Lab Data Lab results reviewed: Yes I reviewed the patient's lab results. 07/10/23 14:46 07/10/23 14:46 Labs: Lab Results 07/10/23 07/10/23 Range/Units 14:46 14:47 WBC 6.6 (4.5-11.0) X10^3/uL RBC 5.04 (4.0-5.2) X10^6/uL Hgb 14.0 (12.0-16.0) g/dL Hct 42.7 (36-46) % MCV 84.7 (80-100) fL MCH 27.8 (26-34) PG MCHC 32.8 (30-36) % RDW 15.1 H (11.6-14.8) % Plt Count 301 (150-400) X10^3/uL Neut % (Auto) 56.8 (50-75) % Lymph % (Auto) 36.3 (25-40) % [place] % (Auto) 5.1 (3-14) % Eos % (Auto) 1.5 L (2-4) % Baso % (Auto) 0.3 (0-2) % Neut # (Auto) 3700 (9611-0743) /uL Lymph # (Auto) 2400 (4127-4939) /uL [place] # (Auto) 300 (0-900) /uL Eos # (Auto) 100 (0-450) /uL Baso # (Auto) 0 (0-100) /uL Sodium 138 (137-145) mmol/L Potassium 4.0 (3.4-5.1) mmol/L Chloride 103 (98-107) mmol/L Carbon Dioxide 26 (22-32) mmol/L BUN 24 H (7-17) mg/dL Creatinine 1.05 H (0.52-1.04) mg/dL Estimated GFR > 60 (>60) mL/min BUN/Creatinine Ratio 22.9 H (6-22) Glucose 94 (70-100) mg/dL Calcium 9.9 (8.4-10.2) mg/dL Total Bilirubin 0.5 (0.2-1.3) mg/dL AST 22 (14-36) IU/L ALT 33 (<35) IU/L Alkaline Phosphatase 70 (38-126) U/L Total Protein 7.9 (6.3-8.2) g/dL Albumin 4.5 (3.5-5.0) g/dL Globulin 3.4 (1.7-4.1) g/dL Albumin/Globulin Ratio 1.3 (1.0-2.8) Lipase 178 (23-300) U/L Urine RBC 1-5/hpf (0-5/HPF) Urine WBC 1-5/hpf (0-5/HPF) Ur Squamous Epith Cells 1-5 /hpf (0-5/HPF) Ur Transition Epith Cell 5-10/hpf H (0-5/HPF) Urine Bacteria Moderate (10-30) H (None) Vol Urine Centrifuged 10ml (spun) Point of Care Testing Test Results Negative Urine Dip Bedside Urine Glucose Negative Urine Specific [place] 1.015 Bedside Urine Occult Blood ++ Bedside Urine pH 6.0 Bedside Urine Protein - Negative Bedside Urine Urobilinogen - Negative Bedside Urine Nitrite - Negative Bedside Urine Leukocytes + 70 Esterase Point of care testing: Point of Care Testing Test Results Negative Urine Dip Bedside Urine Glucose Negative Urine Specific [place] 1.015 Bedside Urine Occult Blood ++ Bedside Urine pH 6.0 Bedside Urine Protein - Negative Bedside Urine Urobilinogen - Negative Bedside Urine Nitrite - Negative Bedside Urine Leukocytes + 70 Esterase ECG Data Attestation: I personally reviewed and interpreted this ECG as follows: Interpretation: Sinus bradycardia Ventricular rate of 57 Normal axis Normal QRS Normal QTC No ST T wave changes MDM Narrative Medical decision making narrative: Patient is well-appearing. Afebrile. Not tachycardic. No leukocytosis. She does not have overt CVA tenderness. Urinalysis is somewhat concerning about a urinary tract infection however given her symptoms of dysuria will treat her as a UTI. She understands that there is a urine culture pending at the time of discharge. No indication for admission to the hospital. She is tolerating oral intake. She was given return precautions. She expressed understanding and agreement. Discharge Plan Departure Patient Disposition: Home Clinical Impression: Urinary tract infection Instructions: DI for Urinary Tract Infection (UTI) Activity Restrictions/Additional Instructions: The prescription for antibiotics was sent to [facility]. There was a urine culture pending at the time of your discharge. We will contact you if we need to change any antibiotics based on this. Return to the emergency department for new or worsening symptoms. Prescriptions: New cephalexin 500 mg capsule 500 mg PO BID 7 Days Qty: 14 0RF Referrals: Miscellaneous,Doctor, MD [Primary Care Provider] - Stand Alone Forms: Patient Portal/API
[2023-07-10] MEDS: cephALEXin 250 MG CAPSULE 500 MG PO (17:02)
== END 2023-07-10 17:07 | disposition home or self-care (01) ==
PROVIDERS: Emergency Provider Emergency Medicine
DX: N39.0 Urinary tract infection, site not specified (principal); R00.1 Bradycardia, unspecified; R07.9 Chest pain, unspecified
CPT/HCPCS: 36415; 80053; 81003; 81015; 81025; 83690; 85025; 87077; 87086; 87186; 93005; 99284